=== PATIENT | male | born 1955 | race Caucasian/White ===

== ENCOUNTER 2016-09-02 10:52 | Emergency (ER) | payer MEDICARE, OTHER ==
[2016-09-02] MEDS ORDERED: DIPHTH,PERTUSS(ACELL),TET VAC 0.5 ML VIAL IM ONE ×2 (11:30→11:33)
--- NOTE | 2016-09-02 11:37 | ERNOTE ---
Medical Problem HPI - Narrative Date of Service: 09/02/16 - General Chief Complaint: General Assessment Time Seen by Provider: 09/02/16 11:25 Source: patient, family Exam Limitations: no limitations - Immun/Allergies/Home Medications Immunizations: IMMUNIZATION HX History of Influenza Vaccine Yes Hx Pneumococcal Vaccination Yes Allergies/Adverse Reactions: Allergies No Known Allergies Allergy (Verified 09/02/16 11:17) Home Medications: HOME MEDICATIONS Escitalopram Oxalate [Lexapro] 10 mg PO DAILY 09/02/16 [Last Taken Unknown] LORazepam [Ativan] 0.5 mg PO TID PRN 09/02/16 [Last Taken Unknown] Metformin HCl [Glumetza] 1,000 mg PO DAILY 09/02/16 [Last Taken Unknown] Metformin HCl [Metformin HCl ER] 500 mg PO HS 09/02/16 [Last Taken Unknown] glyBURIDE [Micronase] 5 mg PO DAILY@0700 09/02/16 [Last Taken Unknown] - History of Present History Narrative: Patient presents to the ED for headache after a head injury. Last night he moved the cough then sat back into the couch and hit his head on the counter behind the cough. He has a laceration to the head but they controlled the bleeding. No LOC. He has immediate BARILLAS with this and the BARILLAS has continued so they felt he should get checked out. No acute focal N/T/W in the extremities. Mild facial tingling at times. Mild neck pain with this. Chronic back pain but no acute pain from this injury. No vomiting. No vision change. No CP or SOB. Timing: constant Severity: moderate Modifying Factors - (Improves): Present: other - nothing Modifying Factors - (Worsens): Present: other - nothing Review of Systems - Review of Systems Constitutional: Absent: fever EYE: Absent: vision changes ENT: Present: no symptoms reported Respiratory: Absent: shortness of breath Cardiology: Absent: chest pain Gastrointestinal/Abdominal: Absent: vomiting All Other Systems: All systems neg except as marked - Patient's Past Medical History Patient History - Medical: Diabetes Type 2 Patient History - Cardiac/Respiratory: Hypertension Patient History - Cancer: No Hx of Cancer Patient History - Surgical Procedures: Other Patient History - Other: None - Social History Living Situations: home Psych History: Hx of Anxiety, Hx of Depression Alcohol Use: none Drug Use: none - Immunizations Hx Pneumococcal Vaccination: Yes History of Influenza Vaccine: Yes Physical Exam - Physical Exam General Appearance: Present: alert, no apparent distress, other - Healing laceration scalp, no FB, no palpable skull fracture. No infection. Too old to repair. 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 No motor or sensory deficits. Skin Exam: Present: other - laceration scalp - old ED Progress - Vital Signs Patient's Vital Signs:: I have reviewed the patient's vital signs. Vital Signs: Vital Signs 09/02/16 11:08 Temperature 35.0 C L Pulse Rate 80 Respiratory 12 Rate Blood Pressure 130/64 O2 Sat by Pulse 96 Oximetry - CT/Ultrasound CT/Ultrasound Narrative: CT head and C-spine report from radiology reviewed. - Progress/Reassessment Chief Complaint: General Assessment Progress Note-Subjective: 09/02/16 12:35 He has no localizing point vertebral tenderness of the cervical spine, nothing to suggest ligamentous injury. With CT scan showing no acute fracture he was cleared from the cervical collar. Pt has post concussive headache. I feel he can safely be discharged. I discussed warning signs and reasons to return as well as the need for close f/u. Departure - Departure Clinical Impression: Head injury, Post-concussion headache Disposition: Home self-care Condition: Stable Instructions: Head Injury, Adult, [id number] Additional Instructions: Rest. Fluids. Tylenol. Follow-up with your doctor within 3 days for a re- check. Return for increased pain, numbness, tingling, weakness or if your condition worsens or changes in any way.
--- OUTSIDE RECORDS SUMMARY | 2016-09-02 11:43 | XMS REPORT | Continuity of Care Document ---
:1955 Author Organization [facility] ([facility]) Address [address] [place] [address] Phone [phone] Care Team Providers Name Role Phone Provider, No-Primary Care Primary Care Provider Unavailable Source Comments This disclosure is being made pursuant to the Care Everywhere program, applicable federal and state laws, and may not contain all informaitonavailable regarding this patient.[facility] ([facility]) Active Allergies and Adverse Reactions No Known Allergies Current Medications Prescription Sig. Disp. Refills Start Date End Date Status aspirin 81 mg tablet Take 81 mg by mouth Active daily. glimepiride (AMARYL) Take 1 mg by mouth Active 1 mg tablet Every morning. metFORMIN Take 850 mg by mouth 2 Active (GLUCOPHAGE) 850 mg times daily with tablet meals. INSULIN inject 5 Units Active GLARGINE,HUM.REC.ANL subcutaneously at OG (LANTUS SC) bedtime. POLYETHYLENE GLYCOL Take by mouth daily. Active 3350 (MIRALAX PO) HYDROcodone-acetamin Take 1 Tab by mouth Active ophen (VICODIN) every 6 hours as 5-500 mg per tablet needed. mupirocin apply 1 application Active (BACTROBAN) 2 % topically daily. ointment minocycline Take 100 mg by mouth 2 Active (MINOCIN) 100 mg times daily. capsule predniSONE Take 1 Tab by mouth 15 Each 1 01/25/2010 Active (DELTASONE) 20 mg every 48 hours. tablet Indications: vasculitis Active Problems Not on file Social History Tobacco Use Types Packs/Day Years Used Date Never Assessed Last Filed Vital Signs Vital Sign Reading Time Taken Blood Pressure 138/69 01/25/2010 11:25 AM CDT Pulse 101 01/25/2010 11:25 AM CDT Temperature - - Respiratory Rate - - Height - - Weight - - Body Mass Index - - Oxygen Saturation - - Plan of Care Health Maintenance Due Date Last Done Comments HCV Screening 1955 Hepatitis B Vaccine (1 of 3 - Primary Series) 1955 Tdap Vaccine 1965 Lipid Disorder Screening 1972 Td Vaccine 1972 Colonoscopy 12/10/2004 Prostate Cancer Screening 2004 Zoster Vaccine 2014 Influenza Vaccine: Seasonal (#1) 02/20/2016 Results from Last 3 Months Not on file
[2016-09-02] MEDS ORDERED: ACETAMINOPHEN 325 MG TABLET ONE (12:35)
[2016-09-02] MEDS ORDERED: ACETAMINOPHEN 325 MG TABLET PO ONE (12:37)
[2016-09-02 17:17] VITALS: BP 128/62
== END 2016-09-02 12:45 | disposition home or self-care (01) ==
LOC: ER 10:52
DX: S09.90XA Unspecified injury of head, initial encounter (principal); G44.309 Post-traumatic headache, unspecified, not intractable; W22.8XXA Striking against or struck by other objects, initial encounter; Y92.009 Unspecified place in unspecified non-institutional (private) residence as the place of occurrence of the external cause; E11.9 Type 2 diabetes mellitus without complications; F41.9 Anxiety disorder, unspecified; F32.9 Major depressive disorder, single episode, unspecified; Z23 Encounter for immunization; S01.91XA Laceration without foreign body of unspecified part of head, initial encounter